=== PATIENT | female | born 1955 | race African-American/Black ===

== ENCOUNTER 2020-12-10 13:34 | Inpatient (IN) | payer MEDICARE, OTHER ==
[~2020-12-10] VITALS: Ht 175.3 cm; Wt 75.3 kg
--- NOTE | 2020-12-10 13:50 | NUR ---
TO ER BED 7, MAIDA DON FROM [facility], DIALYSIS NOT DONE BECAUSE OF ELEVATED FD=[id number], BP UPON ARRIVAL 112/69, SANDRA HARE, CHANGED TO A GOWN AND ATTACHED TO MONITOR.
--- NOTE | 2020-12-10 14:31 | NUR ---
LAB AT BEDSIDE
[2020-12-10] MEDS ORDERED: ERGO500093 GT (14:36)
[2020-12-10] MEDS ORDERED: EZET10TA16 GT (14:36)
[2020-12-10] MEDS ORDERED: ESCI5TAB GT (14:36)
[2020-12-10] MEDS ORDERED: DULO60CA45 GT (14:36)
[2020-12-10] MEDS ORDERED: IPRA3AMP23 IH ×2 (14:36)
[2020-12-10] MEDS ORDERED: ZOLP5TAB8 GT (14:36)
[2020-12-10] MEDS ORDERED: LEVO175T7 GT (14:36)
[2020-12-10] MEDS ORDERED: LACO100T2 GT (14:36)
[2020-12-10] MEDS ORDERED: LEVE500T9 GT (14:36)
[2020-12-10] MEDS ORDERED: METO25TA20 GT (14:36)
[2020-12-10] MEDS ORDERED: DOLU50TA GT (14:36)
[2020-12-10] MEDS ORDERED: HYDR-4303 GT (14:36)
[2020-12-10] MEDS ORDERED: COLL30OI TP (14:36)
[2020-12-10] MEDS ORDERED: AMLO-213 GT (14:36)
[2020-12-10] MEDS ORDERED: EMTR200C4 GT (14:36)
[2020-12-10] MEDS ORDERED: GABA-532 GT (14:36)
[2020-12-10] MEDS ORDERED: LACO50TA2 GT (14:36)
[2020-12-10] MEDS ORDERED: SEVE0.8P3 GT (14:36)
[2020-12-10] MEDS ORDERED: CHLO473M5 MM (14:36)
[2020-12-10] MEDS ORDERED: ABAC300T2 GT (14:36)
[2020-12-10] MEDS ORDERED: FEBU80TA GT (14:36)
[2020-12-10] MEDS ORDERED: METO5SOL2 GT (14:36)
[2020-12-10] MEDS ORDERED: CLON0.1T GT (14:36)
[2020-12-10 14:58] LABS: BASOPHILS % (AUTO) 0.2 % (0.0-2.0); EOSINOPHILS % (AUTO) 5.7 % (0.0-6.0); HEMATOCRIT 28 % (33-45); HEMOGLOBIN 8.6 g/dL (11.5-14.8); LYMPHOCYTES # (AUTO) 0.8 K/uL (0.8-4.8); LYMPHOCYTES % (AUTO) 5.5 % (20.0-44.0); MEAN CORPUSCULAR HGB CONC 31 g/dl (31.0-36.0); MEAN CORPUSCULAR VOLUME 100 fL (82-100); MONOCYTES # (AUTO) 0.6 K/uL (0.1-1.30); NEUTROPHILS # (AUTO) 12.1 K/uL (1.8-8.9); NEUTROPHILS % (AUTO) 84.6 % (43.0-81.0); PLATELET COUNT (AUTO) 343 K/uL (150-450); RED BLOOD CELL COUNT(AUTO) 2.77 MIL/uL (4.0-5.2); WHITE BLOOD COUNT (AUTO) 14.3 K/uL (4.3-11.0)
[2020-12-10 15:08] LABS: CALCIUM, SERUM 9.8 mg/dL (8.5-10.1); CARBON DIOXIDE 30 mmol/L (21-32); CHLORIDE 96 mmol/L (98-107); GLUCOSE 129 mg/dL (74-106); POTASSIUM 4.9 mmol/L (3.5-5.1); SODIUM SERUM 139 mmol/L (136-145); UREA NITROGEN, BLOOD 75 mg/dL (7-18)
[2020-12-10 15:21] LABS: ALANINE AMINOTRANSFERASE 12 U/L (12-78); ALBUMIN 2.2 g/dL (3.4-5.0); ALKALINE PHOSPHATASE 198 U/L (46-116); ASPARTATE AMINOTRANSFERASE 14 U/L (15-37); BILIRUBIN,DIRECT 0.2 mg/dL (0.0-0.2); BILIRUBIN,TOTAL 0.6 mg/dL (0.2-1.0); TOTAL PROTEIN, SERUM 7.9 g/dL (6.4-8.2)
--- NOTE | 2020-12-10 15:25 | NUR ---
MOVE SHEET SUBMITTED.
--- NOTE | 2020-12-10 15:58 | NUR ---
COVID SWAB DONE AND SENT TO LAB
--- NOTE | 2020-12-10 17:24 | NUR ---
[facility] CALLED ADVERTISING STATISTICAL CLERK PAGED.
--- NOTE | 2020-12-10 18:18 | NUR ---
GOT BED 110
--- NOTE | 2020-12-10 18:40 | NUR ---
REPORT GIVEN TO RN AT BEDSIDE
--- NOTE | 2020-12-10 19:05 | NUR ---
ADMIT NOTE RECEIVED PATIENT IN BED, OBTUNDED. RESPONSIVE TO DEEP PAIN. ON T-PIECE @ 5L, O2 SAT 100%. NO SIGNS OF RESPIRATORY DISTRESS. NO SIGNS OF DISCOMFORT. SINUS TACHY 103 ON THE MONITOR. SKIN ASSESSMENT DONE, NOTED WITH LEFT ANKLE WOUND, SACRUM WOUND, BILAT LOW BUTTOCKS EXCORIATION, AND GROIN REDNESS. KEPT CLEAN AND DRY, TURNED AND REPOSITIONED. LEFT ACT #20 PATENT AND INTACT. BED LOCKED AND IN LOWEST POSITION. SAFETY MEASURES MAINTAINED. WILL CONTINUE TO MONITOR.
[2020-12-10] MEDS ORDERED: TEMAZEPAM 15 MG CAPSULE PO PRN (19:30)
[2020-12-10] MEDS ORDERED: HYDROCODONE/APAP 5/325MG TABLET GT PRN (19:30)
[2020-12-10] MEDS ORDERED: METOCLOPRAMIDE HCL 10 MG/10 ML UDC GT PRN (19:30)
[2020-12-10] MEDS ORDERED: Z GUARD REMEDY 2 OZ OINT TP PRN (19:30)
[2020-12-10] MEDS ORDERED: CLONIDINE HCL 0.1 MG TABLET GT PRN (19:30)
[2020-12-10] MEDS ORDERED: ONDANSETRON HCL/PF 4 MG/2 ML VIAL IVP PRN (19:30)
[2020-12-10] MEDS ORDERED: hydrALAZINE HCL IV 20 MG VIAL IV PRN (19:30)
[2020-12-10] MEDS ORDERED: ZOLPIDEM TARTRATE 5 MG TABLET PO PRN (19:30)
[2020-12-10] MEDS ORDERED: ZOLPIDEM TARTRATE 5 MG TABLET GT PRN (19:30)
[2020-12-10 20:00] VITALS: BP 109/60
[2020-12-10] MEDS ORDERED: ACETAMINOPHEN 650 MG/20.3 ML UDC GT PRN (20:00)
[2020-12-10] MEDS: FIXODENT 1 EA TUBE MM SCH (21:00)
--- NOTE | 2020-12-10 22:46 | NUR ---
RN NOTE VERIFIED WITH DESIRE CHAPA IF MEDS OK VIA [facility]. RECEIVED NEW ORDER FOR NPO EXCEPT MEDS. NOTED AND CARRIED OUT.
[2020-12-10] MEDS: EZETIMIBE 10 MG TABLET GT SCH (23:03)
[2020-12-10] MEDS: LACOSAMIDE ORAL SOLN 50 MG/5 ML UDC GT SCH (23:03)
[2020-12-10] MEDS: GABAPENTIN 100 MG CAPSULE GT SCH (23:03)
[2020-12-10] MEDS: LEVETIRACETAM SOL (5 ML) 100 MG/ML UDC GT SCH (23:03)
[2020-12-10] MEDS: METOPROLOL TARTRATE 25 MG TABLET GT SCH (23:21)
[2020-12-11] VITALS (9 sets, daily range): BP systolic 86–123; BP diastolic 40–74
--- NOTE | 2020-12-11 04:23 | NUR ---
RN NOTE PATIENTS BLOOD PRESSURE 86/40 HR 103. NOTIFIED DESIRE CHAPA WITH NEW ORDER FOR IV NS 250 BOLUS. NOTED AND CARRIED OUT.
[2020-12-11] MEDS ORDERED: IV NS 0.9% 250 ML IV ONE (04:30)
[2020-12-11] MEDS: GABAPENTIN 100 MG CAPSULE GT SCH ×3 (04:57→20:07)
[2020-12-11] MEDS: METOPROLOL TARTRATE 25 MG TABLET GT SCH ×3 (05:14→17:11)
--- NOTE | 2020-12-11 06:03 | NUR ---
RN NOTE PATIENTS BLOOD PRESSURE 75/41 . MANUALLY 84/48. PAGED DESIRE CHAPA, WAITING FOR ANY NEW ORDERS.
--- NOTE | 2020-12-11 06:30 | NUR ---
RN NOTE PAGED DESIRE CHAPA AT THIS TIME AGAIN, AWAITING FOR ANY NEW ORDERS.
--- NOTE | 2020-12-11 06:52 | NUR ---
RN NOTE RECHECKED BLOOD PRESSURE 94/48. DESIRE CHAPA MADE AWARE AT THIS TIME WITH ORDERS TO MONITOR. PATIENT OBTUNDED IN BED. OPENS EYES SPONTANEOUSLY. NO ACUTE RESPIRATORY DISTRESS NOTED. IV ACCESS ON LEFT HAND #22 PATENT AND INTACT. BED LOCKED AND IN LOWEST POSITION. CALL LIGHT WITHIN REACH. WILL ENDORSE TO AM SHIFT.
[2020-12-11 07:16] LABS: CALCIUM, SERUM 9.3 mg/dL (8.5-10.1); CREATININE 5.4 mg/dL (0.6-1.3); MAGNESIUM 2.6 mg/dL (1.8-2.4); PHOSPHORUS 6.5 mg/dL (2.5-4.9); POTASSIUM 4.4 mmol/L (3.5-5.1)
--- NOTE | 2020-12-11 07:50 | NUR ---
RN NOTE NOTIFIED DR. MARTINEZ CRITICAL LAB BUN OF 80 AND CREATININE OF 5.4.
[2020-12-11 08:15] LABS: BASOPHILS % (AUTO) 0.2 % (0.0-2.0); EOSINOPHILS % (AUTO) 3.3 % (0.0-6.0); LYMPHOCYTES # (AUTO) 0.7 K/uL (0.8-4.8); LYMPHOCYTES % (AUTO) 3.2 % (20.0-44.0); MEAN CORPUSCULAR HGB CONC 32 g/dl (31.0-36.0); MEAN CORPUSCULAR VOLUME 98 fL (82-100); MONOCYTES # (AUTO) 1.2 K/uL (0.1-1.30); MONOCYTES % (AUTO) 5.4 % (2.0-12.0); NEUTROPHILS # (AUTO) 19.4 K/uL (1.8-8.9); NEUTROPHILS % (AUTO) 87.9 % (43.0-81.0); PLATELET COUNT (AUTO) 281 K/uL (150-450); RED BLOOD CELL COUNT(AUTO) 2.09 MIL/uL (4.0-5.2)
[2020-12-11 08:36] LABS: HEMATOCRIT 20 % (33-45); HEMOGLOBIN 6.6 g/dL (11.5-14.8)
--- NOTE | 2020-12-11 08:47 | NUR ---
RN NOTE PER DR. MARTINEZ HD TODAY FOR BUN OF 80 AND CREATININE OF 5.4.
--- NOTE | 2020-12-11 08:47 | NUR ---
RN NOTE DR. MEZA NOTIFIED PATIENT HGB OF 6.6 AND HCT OF 20, TRANSFUSE 1 UNIT PRBC WITH DIALYSIS TODAY.
[2020-12-11] MEDS: AMLODIPINE BESYLATE 10 MG TABLET GT SCH (09:00)
[2020-12-11] MEDS: FIXODENT 1 EA TUBE MM SCH ×2 (09:00→21:00)
[2020-12-11] MEDS: LEVOTHYROXINE SODIUM 175 MCG TABLET GT SCH (09:06)
[2020-12-11] MEDS: DULOXETINE HCL 30 MG CAPSULE.DR GT SCH (09:06)
[2020-12-11] MEDS: LEVETIRACETAM SOL (5 ML) 100 MG/ML UDC GT SCH ×2 (09:06→20:07)
[2020-12-11] MEDS: SEVELAMER CARBONATE 800 MG POWD.PACK GT SCH ×3 (09:12→17:14)
[2020-12-11] MEDS: ABACAVIR SULFATE 300 MG TABLET GT SCH (09:12)
[2020-12-11] MEDS: THERAHONEY GEL 1.5 OZ TUBE TP SCH (09:14)
[2020-12-11] MEDS: LACOSAMIDE ORAL SOLN 50 MG/5 ML UDC GT SCH ×2 (09:14→20:07)
--- NOTE | 2020-12-11 09:22 | NUR ---
WOUND CARE CONSULT: REVIEWED CHART, NURSING DOCUMENTATION AND PHOTOS WHICH INDICATE NECROTIC WOUND TO SACRUM EXTENDING TO BUTTOCKS WELL LOWER EXTREMITY WOUND, PRESENT ON ADMISSION. SURGICAL AND DPM CONSULTS CALLED TO DR FITZGERALD AND DR HOGAN. RECOMMENDATIONS MADE FOR SKIN PROTECTION INCLUDING LOW AIRLOSS MATTRESS. DISCUSSED WITH NURSING STAFF. MD IN AGREEMENT WITH PLAN OF CARE.
[2020-12-11 09:39] LABS: BAND % (MANUAL) 2 % (0.0-5.0); EOSINOPHILS % (MANUAL) 3 % (0-4); LYMPHOCYTES % (MANUAL) 1 % (16-48); MONOCYTES % (MANUAL) 6 % (0-11.0); NEUTROPHILS % (MANUAL) 88 (42-76)
--- NOTE | 2020-12-11 09:54 | NUR ---
RN NOTE PATIENT UNABLE TO SIGN OBTAINED VERBAL CONSENT FOR HEMODIALYSIS AND BLOOD TRANSFUSION FROM RESPONSIBLE DEMOCRAT DEVIN VELARDE (SON), WITNESS BY CERTIFIED LEGAL SECRETARY SPECIALIST NURSE
--- NOTE | 2020-12-11 12:04 | NUR ---
RN NOTE HOLD METOPROLOL BP OF 95/58 HR OF 89. MD NOTIFIED.
[2020-12-11] MEDS ORDERED: EPOETIN ALFA-EPBX 10,000 UNIT/ML VIAL IV ONE (15:00)
--- NOTE | 2020-12-11 15:06 | NUR ---
RN NOTE BLOOD TRANSFUSION COMPLETED. NO BLOOD TRANSFUSION REACTION NOTED.
--- NOTE | 2020-12-11 15:17 | NUR ---
RN NOTE DR. HARRIS NOTIFIED WBC OF 22.
[2020-12-11] MEDS ORDERED: VANCOMYCIN 1 GM in IV D5W 250 ML IV ONE ×2 (16:00→17:30)
[2020-12-11] MEDS ORDERED: MEROPENEM 1 G in IV NS 0.9% 100 ML IV SCH (16:00)
[2020-12-11] MEDS: MEROPENEM 1 G in IV NS 0.9% 100 ML IV SCH ×2 (17:14→19:21)
--- NOTE | 2020-12-11 17:45 | NUR ---
RN NOTE PATIENT POST DIALYSIS, BLADDER SCAN 5CC, UNABLE TO COLLECT UA ORDER, WILL ENDORSE TO NOC SHIFT.
--- NOTE | 2020-12-11 18:36 | NUR ---
RN CLOSING NOTE PATIENT IN BED, OBTUNDED. T PIECE IN PLACE WITH 5L O2, NO SIGNS OF LABORED BREATHING. FLORES CATH IN PLACE, NO UO. G TUBE IN PLACE, FLUSHED AND PATENT. L HAND 22G IN PLACE RUNNING VANCO AT THIS TIME. BED LOCKED AND IN LOWEST POSITION, 3 SIDE RAILS UP, CALL LIGHT WITHIN REACH. WILL ENDORSE TO MACHINE FOLDER NURSE.
--- NOTE | 2020-12-11 19:00 | NUR ---
RN NOTES, PATIENT TAKEN TO CT SCAN AT THIS TIME, PATIENT IN STABLE CONDITION.
--- NOTE | 2020-12-11 19:35 | NUR ---
RN NOTES, PATIENT RETURN FROM CT SCAN IN STABLE CONDITION, NO SOB/ACUTE DISTRESS NOTED, PATIENT WITH TPIECE IN PLACE, AT 5LPM, WILL CONTINUE TO MONITOR CLOSELY.
[2020-12-11] MEDS: PANTOPRAZOLE 40 MG VIAL IV SCH (20:07)
[2020-12-11] MEDS: DAKINS QUARTER STRENGTH (0.125%) 480 ML BOTTLE TOP SCH (20:14)
[2020-12-11] MEDS: EZETIMIBE 10 MG TABLET GT SCH (21:08)
[2020-12-11] MEDS: METRONIDAZOLE 500 MG TABLET PO SCH (21:08)
--- NOTE | 2020-12-11 22:00 | NUR ---
RN NOTES, PATIENT SEEN BY DOTTIE BLISS, AND PER HER DC THE FLORES SINCE PATIENT IS ANURIC, NO OUTPUT NOTED, PER BLADDER SCAN 5ML ONLY, ORDER NOTED AND CARRIED OUT.
[2020-12-12] VITALS: BP 134/73
[2020-12-12] MEDS: METOPROLOL TARTRATE 25 MG TABLET GT SCH ×4 (00:31→18:00)
[2020-12-12 04:00] VITALS: BP 139/75
[2020-12-12] MEDS: GABAPENTIN 100 MG CAPSULE GT SCH ×3 (05:35→21:39)
[2020-12-12] MEDS: METRONIDAZOLE 500 MG TABLET PO SCH ×3 (05:35→21:39)
[2020-12-12 06:32] LABS: BASOPHILS # (AUTO) 0.1 K/uL (0.0-0.2); BASOPHILS % (AUTO) 0.3 % (0.0-2.0); EOSINOPHILS % (AUTO) 3.9 % (0.0-6.0); HEMATOCRIT 27 % (33-45); HEMOGLOBIN 8.9 g/dL (11.5-14.8); LYMPHOCYTES # (AUTO) 0.6 K/uL (0.8-4.8); LYMPHOCYTES % (AUTO) 3.7 % (20.0-44.0); MEAN CORPUSCULAR HGB CONC 33 g/dl (31.0-36.0); MEAN CORPUSCULAR VOLUME 94 fL (82-100); MONOCYTES # (AUTO) 0.7 K/uL (0.1-1.30); MONOCYTES % (AUTO) 4.3 % (2.0-12.0); NEUTROPHILS # (AUTO) 13.9 K/uL (1.8-8.9); NEUTROPHILS % (AUTO) 87.8 % (43.0-81.0); PLATELET COUNT (AUTO) 289 K/uL (150-450); RED BLOOD CELL COUNT(AUTO) 2.88 MIL/uL (4.0-5.2); WHITE BLOOD COUNT (AUTO) 15.8 K/uL (4.3-11.0)
--- NOTE | 2020-12-12 06:59 | NUR ---
RN NOTES, PT ON BED, OBTUNDED, OPEN EYES TO PAINFUL STIMULI , WITH TRACH IN PLACE, ON T-PIECE, AT 5LPM WITH 100% THROUGHOUT THE NIGHT, NO SOB/ACUTE DISTRESS NOTED, SR HR IN 80-100S DURING THE NIGHT, OPTIMAL O2 SAT LEVEL, NO SIGNIFICANT CHANGE IN CONDITION DURING THE NIGHT, ALL SAFETY MEASURES IN PLACED, SR UP x3, CALL LIGHT W/I REACH, BED LOCKED AND IN LOWEST POSITION, DC FLORES CATH PER DOTTIE LAST NIGHT, WILL ENDORSE CONTINUITY OF CARE TO ONCOMING NURSE.
[2020-12-12 07:02] LABS: CALCIUM, SERUM 9.8 mg/dL (8.5-10.1); CREATININE 3.4 mg/dL (0.6-1.3); MAGNESIUM 2.1 mg/dL (1.8-2.4); PHOSPHORUS 4.2 mg/dL (2.5-4.9); POTASSIUM 4.3 mmol/L (3.5-5.1)
[2020-12-12 08:00] VITALS: BP 107/59
--- NOTE | 2020-12-12 08:00 | NUR ---
NURSE OPENING NOTE RECEIVE REPORT FROM GRAIN ELEVATOR SUPERINTENDENT NURSE. PATIENT IN STABLE CONDITION WITH NO SIGN OF DISTRESS. IV FLUSH IS PATENT AND FLUSH. ALL SAFETY MEASURES IN PLACE. BED IN LOWEST POSITION WITH HOB ELEVATED 30 DEGREE. CALL LIGHT WITHIN REACH. WILL CONTINUE TO MONITOR.
[2020-12-12] MEDS: ABACAVIR SULFATE 300 MG TABLET GT SCH (08:49)
[2020-12-12] MEDS: LEVETIRACETAM SOL (5 ML) 100 MG/ML UDC GT SCH ×2 (08:49→21:39)
[2020-12-12] MEDS: DULOXETINE HCL 30 MG CAPSULE.DR GT SCH (08:50)
[2020-12-12] MEDS: SEVELAMER CARBONATE 800 MG POWD.PACK GT SCH ×3 (08:50→18:06)
[2020-12-12] MEDS: PANTOPRAZOLE 40 MG VIAL IV SCH ×2 (08:51→18:06)
[2020-12-12] MEDS: AMLODIPINE BESYLATE 10 MG TABLET GT SCH (08:51)
[2020-12-12] MEDS: FIXODENT 1 EA TUBE MM SCH ×2 (08:52→21:00)
[2020-12-12] MEDS: DAKINS QUARTER STRENGTH (0.125%) 480 ML BOTTLE TOP SCH (08:53)
[2020-12-12] MEDS: THERAHONEY GEL 1.5 OZ TUBE TP SCH (08:54)
[2020-12-12] MEDS: LACOSAMIDE ORAL SOLN 50 MG/5 ML UDC GT SCH ×2 (09:06→21:38)
[2020-12-12] MEDS: LEVOTHYROXINE SODIUM 175 MCG TABLET GT SCH (09:06)
[2020-12-12] MEDS ORDERED: VANCOMYCIN 500 MG in IV D5W 100 ML IV PRN (11:00)
[2020-12-12 12:00] VITALS: BP 95/57
[2020-12-12 16:00] VITALS: BP 90/55
[2020-12-12] MEDS ORDERED: VANCOMYCIN 500 MG in IV D5W 100 ML IV SCH (16:00)
[2020-12-12] MEDS: MEROPENEM 1 G in IV NS 0.9% 100 ML IV SCH (18:05)
[2020-12-12] MEDS ORDERED: EMTRICITABINE 200 MG CAPSULE GT SCH (19:30)
--- NOTE | 2020-12-12 19:31 | NUR ---
NURSE CLOSING NOTE REPORT WAS GIVEN TO ON COMING NURSE. PATIENT IN STABLE CONDITION. DIALYSIS WAS DONE. POST DIALYSIS BLOOD PRESSURE 96/59. 2000ML WAS TAKEN OUT. MID LINE WAS PLACE ON RIGHT UPPER ARM 18g. FLUSH WELL. WOUND CONSULT IN PLACE AND CONSENT SIGNED. SAFETY MEASURE IN PLACE. PATIENT WAS TURN AND REPOSITIONED ACCORDING TO PROTOCOL. BED IN THE LOWEST POSITION WITH HEAD OF THE BED ELEVATED 30 DEGREE. CALL LIGHT WITHIN REACH.
[2020-12-12 20:00] VITALS: BP 103/48
--- NOTE | 2020-12-12 20:00 | NUR ---
RT COVID RESULTS NEG, PT PLACED ON COOL AEROSOL 28% FIO2. NO SOB OR RESPIRATORY DISTRESS NOTED. PT SON IS BEDSIDE. RN INFORMED.
[2020-12-12] MEDS: EZETIMIBE 10 MG TABLET GT SCH (21:39)
--- NOTE | 2020-12-12 21:48 | NUR ---
MED NOTE: FIXODENT NOT GIVEN PT HAS NO DENTURES.
[2020-12-13] VITALS (7 sets, daily range): BP systolic 105–133; BP diastolic 54–83
[2020-12-13] MEDS: METOPROLOL TARTRATE 25 MG TABLET GT SCH ×5 (00:53→23:56)
[2020-12-13] MEDS: METRONIDAZOLE 500 MG TABLET PO SCH ×3 (05:04→21:33)
[2020-12-13] MEDS: GABAPENTIN 100 MG CAPSULE GT SCH ×3 (05:04→21:33)
[2020-12-13 06:07] LABS: *BASOS 0 % (Not Estab.); *BASOS, ABSOLUTE 0.1 x10E3/uL (0.0-0.2); *EOS 4 % (Not Estab.); *EOS, ABSOLUTE 0.7 x10E3/uL (0.0-0.4); *HCT 26.6 % (34.0-46.6); *HGB 8.6 g/dL (11.1-15.9); *IMMATURE GRANULOCYTES 1 % (Not Estab.); *IMMATURE GRANULOCYTES(ABS) 0.2 x10E3/uL (0.0-0.1); *LYMPHOCYTES 4 % (Not Estab.); *LYMPHS, ABSOLUTE 0.7 x10E3/uL (0.7-3.1); *MCH 29.9 pg (26.6-33.0); *MCHC 32.3 g/dL (31.5-35.7); *MCV 92 fL (79-97); *MONOCYTES 4 % (Not Estab.); *MONOS, ABSOLUTE 0.8 x10E3/uL (0.1-0.9); *NEUTROPHILS 87 % (Not Estab.); *NEUTROPHILS, ABSOLUTE 16.9 x10E3/uL (1.4-7.0); *PLT 267 x10E3/uL (150-450); *RBC 2.88 x10E6/uL (3.77-5.28)
--- NOTE | 2020-12-13 06:08 | NUR ---
RT Pt with Portex 8 trach on cool aerosol with 28% FiO2 via t-bar. Spo2 > 99% maintained. Suction PRN, small thick white secretions. Trach care done and matthews changed. No SOB or respiratory distress noted throughout shift.
--- NOTE | 2020-12-13 07:30 | NUR ---
TRESTLEMAN AM NOTE RECEIVE PT IN BED, NON VERBAL, OPENS EYE, WITH PORTEX 8 TRACH ON COOL AEROSOL RECEIVING 2L WITH FIO2 28%, SINUS RHYTHM HR 76 ON MONITOR,NO SIGNS OF PAIN/DISCOMFORT, NO GRIMACING. JOSE A MIDLINE FLUSHES WELL SITE CLEAR, CDI DRESSING. TERESA AV SHUNT CDI DRESSING. NPO FOR NOW. GT CLAMPED. CHECKED FOR PLACEMENT.FLUSHED. SEE NURSING FLOWSHEET FOR SKIN ISSUES. FOR DEBRIDEMENT OF SACRAL WOUND, CONSENT SIGNED. ALL SAFETY MEASURES IN PLACE. BED IN LOWEST POSITION WITH HOB ELEVATED 30 DEGREE. CALL LIGHT WITHIN REACH. WILL CONTINUE TO MONITOR.
[2020-12-13] MEDS: THERAHONEY GEL 1.5 OZ TUBE TP SCH (09:00)
[2020-12-13] MEDS: FIXODENT 1 EA TUBE MM SCH ×2 (09:00→20:25)
[2020-12-13 09:06] LABS: BASOPHILS # (AUTO) 0.1 K/uL (0.0-0.2); BASOPHILS % (AUTO) 0.4 % (0.0-2.0); EOSINOPHILS % (AUTO) 2.7 % (0.0-6.0); HEMATOCRIT 28 % (33-45); HEMOGLOBIN 8.7 g/dL (11.5-14.8); LYMPHOCYTES # (AUTO) 0.6 K/uL (0.8-4.8); LYMPHOCYTES % (AUTO) 3.6 % (20.0-44.0); MEAN CORPUSCULAR HGB CONC 31 g/dl (31.0-36.0); MEAN CORPUSCULAR VOLUME 95 fL (82-100); MONOCYTES # (AUTO) 0.9 K/uL (0.1-1.30); MONOCYTES % (AUTO) 5.3 % (2.0-12.0); NEUTROPHILS # (AUTO) 15.1 K/uL (1.8-8.9); PLATELET COUNT (AUTO) 306 K/uL (150-450); RED BLOOD CELL COUNT(AUTO) 2.93 MIL/uL (4.0-5.2); WHITE BLOOD COUNT (AUTO) 17.2 K/uL (4.3-11.0)
[2020-12-13 09:07] LABS: *% CD 4 POS. LYMPH 54.6 % (30.8-58.5); *% CD 8 POS. LYMPH 21.9 % (12.0-35.5); *ABSOLUTE CD 4 HELPER 382 /uL (359-1519); *ABSOLUTE CD 8 SUPPRESSOR 153 /uL (109-897); *CD4/CD8 RATIO 2.49 (0.92-3.72)
[2020-12-13 09:16] LABS: ALBUMIN 1.9 g/dL (3.4-5.0); BILIRUBIN,TOTAL 0.5 mg/dL (0.2-1.0); CALCIUM, SERUM 10.3 mg/dL (8.5-10.1); CREATININE 2.5 mg/dL (0.6-1.3); POTASSIUM 4.2 mmol/L (3.5-5.1)
[2020-12-13] MEDS: PANTOPRAZOLE 40 MG VIAL IV SCH (09:25)
--- NOTE | 2020-12-13 09:30 | NUR ---
RN NOTES DUE MEDS GIVEN
[2020-12-13] MEDS: LACOSAMIDE ORAL SOLN 50 MG/5 ML UDC GT SCH ×2 (09:36→21:33)
[2020-12-13] MEDS: ABACAVIR SULFATE 300 MG TABLET GT SCH (09:36)
[2020-12-13] MEDS: DULOXETINE HCL 30 MG CAPSULE.DR GT SCH (09:37)
[2020-12-13] MEDS: LEVOTHYROXINE SODIUM 175 MCG TABLET GT SCH (09:38)
[2020-12-13] MEDS: AMLODIPINE BESYLATE 10 MG TABLET GT SCH (09:38)
[2020-12-13] MEDS: LEVETIRACETAM SOL (5 ML) 100 MG/ML UDC GT SCH ×2 (09:43→21:32)
[2020-12-13] MEDS: SEVELAMER CARBONATE 800 MG POWD.PACK GT SCH ×3 (09:43→18:22)
[2020-12-13] MEDS: DAKINS QUARTER STRENGTH (0.125%) 480 ML BOTTLE TOP SCH (10:52)
[2020-12-13] MEDS ORDERED: LIDOCAINE 1%-EPI 1:100,000 50 ML VIAL IJ ONE (12:00)
[2020-12-13] MEDS ORDERED: SILVER NITRATE APPLICATOR 1 EA BOX TP ONE (12:00)
[2020-12-13] MEDS ORDERED: DEXTROSE 50%-WATER 50 ML DISP.SYRIN IV PRN (12:00)
[2020-12-13] MEDS ORDERED: NEPRO 1,000 ML BOTTLE GT PRN (12:30)
--- NOTE | 2020-12-13 12:33 | NUR ---
RN NOTES ACCUCHECK DONE. BS 96 MG/DL. NO INSULIN COVERAGE GIVEN
[2020-12-13] MEDS: BLOOD SUGAR DIAGNOSTIC 1 EACH STRIP IN SCH ×3 (12:49→21:34)
[2020-12-13] MEDS ORDERED: VANCOMYCIN 500 MG in IV D5W 100 ML IV PRN (15:30)
[2020-12-13] MEDS: PROSOURCE / PROSTAT (PYXIS) 30 ML UDC GT SCH ×2 (15:30→18:36)
[2020-12-13] MEDS: NEPRO 1,000 ML BOTTLE GT PRN (17:48)
[2020-12-13] MEDS: MEROPENEM 1 G in IV NS 0.9% 100 ML IV SCH (18:22)
--- NOTE | 2020-12-13 19:16 | NUR ---
LOG CUTTER CLOSING NOTE PT IN BED RESTING, NON VERBAL, OPENS EYE, WITH PORTEX 8 TRACH ON COOL AEROSOL RECEIVING 2L WITH FIO2 28%, SINUS RHYTHM HR 7Os TO 80s ON MONITOR,NO SIGNS OF PAIN/DISCOMFORT, NO GRIMACING. JOSE A MIDLINE FLUSHES WELL SITE CLEAR, CDI DRESSING. TERESA AV SHUNT CDI DRESSING. HEMODIALYSIS NURSE AT BEDSIDE FINISHING HD WITH 1000 ML OUTPUT. ONGOING GTF NEPRO AT 35 ML/HR. CHECKED FOR PLACEMENT.FLUSHED. PT STILL FOR DEBRIDEMENT OF SACRAL WOUND SIDDHARTHA C/O IBIS MONROE, CONSENT SIGNED. ALL SUPPLIES AT BEDSIDE. TURNED AND REPOSITIONED Q 2 HOURS. ALL SAFETY MEASURES IN PLACE. BED IN LOWEST POSITION WITH HOB ELEVATED 30 DEGREE. CALL LIGHT WITHIN REACH. ALL NEEDS ATTENDED, NO OTHER SIGNIFICANT CHANGE IN CONDITION. ENDORSED TO NEXT SHIFT FOR [place].
--- NOTE | 2020-12-13 19:40 | NUR ---
RCVD TRACH PT W SIZE PORTEX 8 ON COOL AEROSOL 28% 5L. SUCTIONED SMALL YELLOW THICK SECRETIONS. PT IS NON VERBAL , NO RESPIRATORY DISTRESS NOTED AT THIS TIME. WILL CONTINUE TO MONITOR T/O THE SHIFT.
[2020-12-13] MEDS: PANTOPRAZOLE 40 MG/PACK PACK NG SCH (21:33)
[2020-12-13] MEDS: EZETIMIBE 10 MG TABLET GT SCH (21:34)
[2020-12-14] VITALS: BP 127/60
[2020-12-14 04:00] VITALS: BP 134/67
[2020-12-14] MEDS: GABAPENTIN 100 MG CAPSULE GT SCH ×3 (05:37→23:21)
[2020-12-14] MEDS: METOPROLOL TARTRATE 25 MG TABLET GT SCH ×3 (05:38→17:05)
[2020-12-14] MEDS: METRONIDAZOLE 500 MG TABLET PO SCH ×3 (05:38→23:21)
[2020-12-14 07:17] LABS: BASOPHILS # (AUTO) 0.1 K/uL (0.0-0.2); BASOPHILS % (AUTO) 0.5 % (0.0-2.0); EOSINOPHILS % (AUTO) 2.2 % (0.0-6.0); HEMATOCRIT 30 % (33-45); HEMOGLOBIN 9.4 g/dL (11.5-14.8); LYMPHOCYTES # (AUTO) 0.7 K/uL (0.8-4.8); LYMPHOCYTES % (AUTO) 3.9 % (20.0-44.0); MEAN CORPUSCULAR HGB CONC 32 g/dl (31.0-36.0); MEAN CORPUSCULAR VOLUME 95 fL (82-100); MONOCYTES # (AUTO) 1.2 K/uL (0.1-1.30); MONOCYTES % (AUTO) 6.7 % (2.0-12.0); NEUTROPHILS % (AUTO) 86.7 % (43.0-81.0); PLATELET COUNT (AUTO) 305 K/uL (150-450); RED BLOOD CELL COUNT(AUTO) 3.14 MIL/uL (4.0-5.2); WHITE BLOOD COUNT (AUTO) 18.5 K/uL (4.3-11.0)
--- NOTE | 2020-12-14 07:30 | NUR ---
RN AM NOTE RECEIVED PT IN BED, NON VERBAL, OPENS EYE, WITH PORTEX 8 TRACH ON COOL AEROSOL RECEIVING 2L WITH FIO2 28%, O2 SATURATION 100%, SINUS RHYTHM HR 88 ON MONITOR, PT SHOWS NO SIGNS OF PAIN OR DISCOMFORT, NO GRIMACING. JOSE A MIDLINE FLUSHES WELL SITE CLEAR, CDI DRESSING. TERESA AV SHUNT CDI DRESSING. NPO FOR NOW. GT WITH NEPRO @35ML/HR. CHECKED FOR PLACEMENT. FLUSHED. PT SCHEDULED FOR DEBRIDEMENT OF SACRAL WOUND THIS AFTERNOON, CONSENT SIGNED. ALL SAFETY MEASURES IN PLACE: BED IN LOWEST POSITION WITH HOB ELEVATED 30 DEGREES, BED RAILS RAISED X2. CALL LIGHT WITHIN REACH.
[2020-12-14 07:42] LABS: ALBUMIN 2.1 g/dL (3.4-5.0); BILIRUBIN,TOTAL 0.6 mg/dL (0.2-1.0); CALCIUM, SERUM 9.2 mg/dL (8.5-10.1); CREATININE 2.2 mg/dL (0.6-1.3); POTASSIUM 3.8 mmol/L (3.5-5.1); TOTAL PROTEIN, SERUM 6.3 g/dL (6.4-8.2)
[2020-12-14 08:00] VITALS: BP 149/76
[2020-12-14] MEDS: LEVOTHYROXINE SODIUM 175 MCG TABLET GT SCH (08:23)
[2020-12-14] MEDS: PROSOURCE / PROSTAT (PYXIS) 30 ML UDC GT SCH ×3 (08:23→17:05)
[2020-12-14] MEDS: LACOSAMIDE ORAL SOLN 50 MG/5 ML UDC GT SCH ×2 (08:24→23:20)
[2020-12-14] MEDS: ABACAVIR SULFATE 300 MG TABLET GT SCH (08:24)
[2020-12-14] MEDS: PANTOPRAZOLE 40 MG/PACK PACK NG SCH ×2 (08:24→23:20)
[2020-12-14] MEDS: LEVETIRACETAM SOL (5 ML) 100 MG/ML UDC GT SCH ×2 (08:24→23:19)
[2020-12-14] MEDS: SEVELAMER CARBONATE 800 MG POWD.PACK GT SCH ×3 (08:25→17:05)
[2020-12-14] MEDS: AMLODIPINE BESYLATE 10 MG TABLET GT SCH (08:26)
[2020-12-14] MEDS: DULOXETINE HCL 30 MG CAPSULE.DR GT SCH (08:26)
[2020-12-14] MEDS: BLOOD SUGAR DIAGNOSTIC 1 EACH STRIP IN SCH ×4 (08:38→22:00)
[2020-12-14] MEDS: FIXODENT 1 EA TUBE MM SCH ×2 (09:00→23:49)
[2020-12-14] MEDS: DAKINS QUARTER STRENGTH (0.125%) 480 ML BOTTLE TOP SCH (09:06)
[2020-12-14] MEDS: THERAHONEY GEL 1.5 OZ TUBE TP SCH (09:07)
[2020-12-14] MEDS: INSULIN REGULAR, HUMAN 100 UNIT/ML 3 ML VIAL SQ PRN ×3 (09:11→17:47)
--- NOTE | 2020-12-14 09:30 | NUR ---
RN NOTES DUE MEDS GIVEN
[2020-12-14] MEDS ORDERED: LINEZOLID 600 MG TABLET PO SCH (11:30)
[2020-12-14 12:00] VITALS: BP 105/53
[2020-12-14] MEDS ORDERED: DAPTOMYCIN 500 MG in IV NS 0.9% 50 ML IV SCH (13:00)
--- NOTE | 2020-12-14 13:10 | NUR ---
RN NOTES S/P SACRAL WOUND DEBRIDEMENT BY IBIS MONROE. PROCEDURE WELL TOLERATED BY PATIENT.
[2020-12-14 16:00] VITALS: BP 126/67
[2020-12-14] MEDS: MEROPENEM 1 G in IV NS 0.9% 100 ML IV SCH (17:05)
--- NOTE | 2020-12-14 18:17 | NUR ---
RN PM NOTE PT IS IN BED RESTING, NON VERBAL, OPENS EYE, WITH PORTEX 8 TRACH ON COOL AEROSOL RECEIVING 2L WITH FIO2 28%, SINUS RHYTHM HR 90S TO 100S ON MONITOR, NO SIGNS OF PAIN/DISCOMFORT, NO GRIMACING. JOSE A MIDLINE FLUSHES WELL SITE CLEAR, CDI DRESSING. TERESA AV SHUNT CDI DRESSING. NO HEMODIALYSIS TODAY. ONGOING GTF NEPRO AT 35 ML/HR. CHECKED FOR PLACEMENT.FLUSHED. PT HAD DEBRIDEMENT OF SACRAL WOUND TODAY C/O IBIS MONROE, CONSENT SIGNED. TURNED AND REPOSITIONED Q 2 HOURS USING WEDGE. ALL SAFETY MEASURES IN PLACE. BED IN LOWEST POSITION WITH HOB ELEVATED 30 DEGREE. CALL LIGHT WITHIN REACH. ALL NEEDS ATTENDED, NO OTHER SIGNIFICANT CHANGE IN CONDITION. WILL ENDORSE TO MARBLE HELPER NURSE FOR [place].
[2020-12-14] MEDS ORDERED: ERGOCALCIFEROL (VITAMIN D 2) 50,000 UNIT CAPSULE GT SCH (19:30)
--- NOTE | 2020-12-14 19:54 | NUR ---
RN OPENING NOTES; RECEIVED PATIENT SLEEP IN BED, AROUSABLE TO STIMULI, BED IN LOW POSITION, CALL LIGHTS WITHIN REACH, NO COMPLAIN OF PAIN AND DISCOMFORT NO FACIAL GRIMACING WAS OBSERVED, ON NASAL CANNULA COOL AEROSOL, NONE VERBAL, ON G TUBE FEEDING AT 35ML/HR ON TELE MONITORING, WITH IV LINE AT JOSE A MIDLINE AND AV TERESA AV SHUNT, PATIENT KEPT CLEAN AND DRY, PLACED IN BED COMFORTABLY, WILL CONTINUE TO MONITOR.
[2020-12-14 20:00] VITALS: BP 110/59
[2020-12-14] MEDS: EZETIMIBE 10 MG TABLET GT SCH (23:21)
--- NOTE | 2020-12-14 23:50 | NUR ---
RN NOTES: PATIENT GIVEN TYLENOL 650MG GT FOR TEMP 101.2
[2020-12-15] MEDS: INSULIN REGULAR, HUMAN 100 UNIT/ML 3 ML VIAL SQ PRN ×4 (00:01→22:02)
[2020-12-15 01:28] VITALS: BP 79/44
[2020-12-15 04:00] VITALS: BP 104/49
[2020-12-15] MEDS ORDERED: IV NS 0.9% 500 ML IV ONE (05:30)
[2020-12-15 05:59] LABS: BASOPHILS # (AUTO) 0.1 K/uL (0.0-0.2); BASOPHILS % (AUTO) 0.6 % (0.0-2.0); EOSINOPHILS % (AUTO) 1.7 % (0.0-6.0); HEMATOCRIT 24 % (33-45); HEMOGLOBIN 7.7 g/dL (11.5-14.8); LYMPHOCYTES # (AUTO) 0.8 K/uL (0.8-4.8); LYMPHOCYTES % (AUTO) 5.2 % (20.0-44.0); MEAN CORPUSCULAR HGB CONC 32 g/dl (31.0-36.0); MEAN CORPUSCULAR VOLUME 95 fL (82-100); MONOCYTES % (AUTO) 6.9 % (2.0-12.0); NEUTROPHILS # (AUTO) 12.7 K/uL (1.8-8.9); NEUTROPHILS % (AUTO) 85.6 % (43.0-81.0); PLATELET COUNT (AUTO) 295 K/uL (150-450); RED BLOOD CELL COUNT(AUTO) 2.55 MIL/uL (4.0-5.2); WHITE BLOOD COUNT (AUTO) 14.9 K/uL (4.3-11.0)
[2020-12-15] MEDS: METOPROLOL TARTRATE 25 MG TABLET GT SCH ×4 (06:00→17:15)
[2020-12-15] MEDS: GABAPENTIN 100 MG CAPSULE GT SCH ×3 (06:19→20:34)
[2020-12-15] MEDS: METRONIDAZOLE 500 MG TABLET PO SCH ×3 (06:19→20:34)
--- NOTE | 2020-12-15 07:10 | NUR ---
RN CLOSING NOTES: RECEIVED PATIENT SLEEP IN BED COMFORTABLY, BED IN LOW POSITION CALL LIGHTS WITHIN REACH, NO COMPLAIN OF PAIN AND DISCOMFORT NO FACIAL GRIMACING NOTED ON TELE MONITORING , WITH IV LINE AT JOSE A #18 AND TERESA HD PORT, PATIENT ON G TUBE FEEDING NEPHRO 35 ML /HR INFUSING WELL, PATIENT WAS MONITORED DUE LOW BP ORDER OF 500CC OF 0.9NSS DONE AND CARRY OUT PATIENT KEPT CLEAN AND DRY ALL NEEDS MET ENDORSE TO INCOMING SHIFT.
--- NOTE | 2020-12-15 07:31 | NUR ---
RT Pt suctioned through inline matthews, small thick yellow/white secretions. Addendum: 12/15/20 at 1113 by NIKHIL SARKAR RT Amended: Links added.
--- NOTE | 2020-12-15 07:34 | NUR ---
RN NOTES: RELAY PT LOW BP AT 12MN BP 90/56 AND 4AM BP 79/42 TO INSPECTOR BARREL LIZ AND ORDER 500CC NSS FAST DRIP NOTED AND CARRY OUT PATIENT BP WAS 104/49 AFTER INFUSION.
--- NOTE | 2020-12-15 07:40 | NUR ---
RN OPENING NOTES RECEIVED PATIENT ASLEEP IN BED, NON-VERBAL, AROUSABLE TO STIMULI. BREATHING IS EVEN AND UNLABORED. ON NASAL CANNULA COOL AEROSOL. IV ACCESS JOSE A MIDLINE AND TERESA AV SHUNT PATENT AND INTACT. SAFETY MEASURES IN PLACE WITH BED LOCKED AT LOW POSITION, SIDE RAILS UP X 2. WILL CONTINUE TO MONITOR PATIENT THROUGHOUT SHIFT.
[2020-12-15] MEDS: BLOOD SUGAR DIAGNOSTIC 1 EACH STRIP IN SCH ×4 (07:42→21:52)
[2020-12-15 08:00] VITALS: BP 98/50
[2020-12-15] MEDS: AMLODIPINE BESYLATE 10 MG TABLET GT SCH (09:00)
[2020-12-15] MEDS: DULOXETINE HCL 30 MG CAPSULE.DR GT SCH (09:05)
[2020-12-15] MEDS: LEVETIRACETAM SOL (5 ML) 100 MG/ML UDC GT SCH ×2 (09:05→20:34)
[2020-12-15] MEDS: PANTOPRAZOLE 40 MG/PACK PACK NG SCH ×2 (09:05→20:34)
[2020-12-15] MEDS: LACOSAMIDE ORAL SOLN 50 MG/5 ML UDC GT SCH ×2 (09:05→20:34)
[2020-12-15] MEDS: SEVELAMER CARBONATE 800 MG POWD.PACK GT SCH ×3 (09:06→16:33)
[2020-12-15] MEDS: ABACAVIR SULFATE 300 MG TABLET GT SCH (09:08)
[2020-12-15] MEDS: LAMIVUDINE/ZIDOVUDINE 150-300 1 TAB TABLET PO SCH ×2 (09:08→20:34)
[2020-12-15] MEDS: EFAVIRENZ 600 MG TABLET PO SCH (09:09)
[2020-12-15] MEDS: LEVOTHYROXINE SODIUM 175 MCG TABLET GT SCH (09:10)
[2020-12-15] MEDS: PROSOURCE / PROSTAT (PYXIS) 30 ML UDC GT SCH ×3 (09:10→16:33)
[2020-12-15] MEDS: FIXODENT 1 EA TUBE MM SCH ×2 (09:31→21:00)
[2020-12-15] MEDS: THERAHONEY GEL 1.5 OZ TUBE TP SCH (09:31)
[2020-12-15] MEDS: DAKINS QUARTER STRENGTH (0.125%) 480 ML BOTTLE TOP SCH (09:31)
[2020-12-15] MEDS: MIDODRINE HCL (5MG) 5 MG TABLET PO SCH ×3 (09:34→16:32)
--- NOTE | 2020-12-15 09:51 | NUR ---
RN NIKOS RECEIVED A CALL FROM [facility]. PT IS POSITIVE FOR VRE IN THE BLOOD. JOSE HERRERA IS MADE AWARE. PLACED PT IN CONTACT PRECAUTION.
[2020-12-15 12:00] VITALS: BP 114/63
[2020-12-15 12:04] LABS: ALBUMIN 1.8 g/dL (3.4-5.0); BILIRUBIN,TOTAL 0.5 mg/dL (0.2-1.0); CALCIUM, SERUM 9.3 mg/dL (8.5-10.1); CREATININE 3.1 mg/dL (0.6-1.3); POTASSIUM 3.2 mmol/L (3.5-5.1); TOTAL PROTEIN, SERUM 5.7 g/dL (6.4-8.2)
[2020-12-15] MEDS: NEPRO 1,000 ML BOTTLE GT PRN (12:50)
--- NOTE | 2020-12-15 15:55 | NUR ---
RT Pt suctioned through trach moderate thick white/yellow secretions. Trach care done, no bleeding or redness at trach site noted. Addendum: 12/15/20 at 1602 by NIKHIL SARKAR RT Amended: Links added.
[2020-12-15 16:00] VITALS: BP 123/72
[2020-12-15] MEDS: MEROPENEM 1 G in IV NS 0.9% 100 ML IV SCH (17:28)
--- NOTE | 2020-12-15 19:20 | NUR ---
RN OPENING NOTE PT IN BED, NONVERBAL, OPENS EYES TO STIMULI, FLAT AFFECT. NO S/S OF PAIN NOTED. RESPIRATIONS EVEN/UNLABORED. ON COOL AEROSOL VIA T-PIECE, WITH O2 @5LPM. IV SITE: JOSE A MIDLINE INTACT/PATENT/FLUSHES WELL. WITH TERESA AV SHUNT WITH DRESSING C/D/I. S/P HD TODAY. WITH GT IN PLACE, INTACT/PATENT, 0 RESIDUAL NOTED. TELE MONITOR READING SR, HR 97. PT IN NO ACUTE DISTRESS. WILL CONT TO MONITOR. SAFETY MEASURES IN PLACE, BED IN LOWEST LOCKED POSITION, S/R UPX2, CALL LIGHT WITHIN REACH.
[2020-12-15 20:00] VITALS: BP_SYST 114; BP_SYST 96; BP_DIAS 64; BP_DIAS 67
[2020-12-15] MEDS: EZETIMIBE 10 MG TABLET GT SCH (22:06)
--- NOTE | 2020-12-15 23:10 | NUR ---
RN NOTE PT FOR TRANSFER TO [id number]. REPORT GIVEN TO RN, CAM.
--- NOTE | 2020-12-15 23:30 | NUR ---
GRIDDLE COOK MONITORING NOTES: RECEIVED PATIENT TRANSFER FROM [facility] ON STABLE CONDITION, PATIENT IS AWAKE NO COMPLAIN OF PAIN OR ANY FACIAL GRIMACING, ON TELE MONITORING SR -64, PATIENT ON G TUBE FEEDING OF NEPHRO 100ML 235ML/HR INFUSING WELL, WATER FLUSHING DONE 100CC EVERY 6 HOURS, PATIENT JOSE A MIDLINE WITH TERESA AV SHUNT HEMO DIALYSIS DONE TODAY WITH 2.5L OUTPUT, ON 5L VIA COOL AEROSOL AT 96 % SATURATION, NO SOB OR ANY RESP DISTRESS OBSERVED, PATIENT KEPT CLEAN AND DRYL ALL NEEDS MET WILL CONTINUE TO MONITOR.
--- NOTE | 2020-12-15 23:30 | NUR ---
RN NOTE PT TRANSFERRED TO [id number] VIA ACLS PROTOCOL. PT IN STABLE CONDITION. HANDOFF TO RNCAM, FOR CONTINUITY OF CARE.
[2020-12-16] VITALS (8 sets, daily range): BP systolic 96–123; BP diastolic 56–72
[2020-12-16] MEDS: METOPROLOL TARTRATE 25 MG TABLET GT SCH ×4 (00:27→17:06)
[2020-12-16] MEDS: GABAPENTIN 100 MG CAPSULE GT SCH ×3 (05:20→22:28)
[2020-12-16 06:43] LABS: BASOPHILS # (AUTO) 0.1 K/uL (0.0-0.2); BASOPHILS % (AUTO) 0.4 % (0.0-2.0); EOSINOPHILS % (AUTO) 3.6 % (0.0-6.0); HEMATOCRIT 24 % (33-45); HEMOGLOBIN 7.9 g/dL (11.5-14.8); LYMPHOCYTES # (AUTO) 0.8 K/uL (0.8-4.8); LYMPHOCYTES % (AUTO) 4.3 % (20.0-44.0); MEAN CORPUSCULAR HGB CONC 33 g/dl (31.0-36.0); MEAN CORPUSCULAR VOLUME 92 fL (82-100); MONOCYTES # (AUTO) 1.2 K/uL (0.1-1.30); MONOCYTES % (AUTO) 6.8 % (2.0-12.0); NEUTROPHILS % (AUTO) 84.9 % (43.0-81.0); PLATELET COUNT (AUTO) 361 K/uL (150-450); RED BLOOD CELL COUNT(AUTO) 2.64 MIL/uL (4.0-5.2); WHITE BLOOD COUNT (AUTO) 17.6 K/uL (4.3-11.0)
[2020-12-16] MEDS: INSULIN REGULAR, HUMAN 100 UNIT/ML 3 ML VIAL SQ PRN ×4 (06:54→23:03)
--- NOTE | 2020-12-16 07:10 | NUR ---
TAIL WORKER CLOSING NOTES: PATIENT WAS RECEIVED TRANSFER FROM [place] ON STABLE CONDITION, PLACED IN BED COMFORTABLY, NO COMPLAIN OF PAIN AND DISCOMFORT, NO FACIAL GRIMACING WAS OBSERVED WITH JOSE A MIDLINE, AND TERESA AV SHUNT, ON DIALYSIS DONE YESTERDAY WITH 2.5L OUTPUT, PATIENT IS G TUBE FEEDING OF NEPHRO AT 35ML/HR INFUSING WELL, ON BLOOD SUGAR MONITORING, PATIENT KEPT CLEAN AND DRY, ALL NEEDS MET, ENDORSE TO INCOMING SHIFT.
[2020-12-16 07:30] LABS: ALBUMIN 1.7 g/dL (3.4-5.0); BILIRUBIN,TOTAL 0.5 mg/dL (0.2-1.0); CALCIUM, SERUM 10.1 mg/dL (8.5-10.1); CREATININE 2.4 mg/dL (0.6-1.3); POTASSIUM 3.2 mmol/L (3.5-5.1); TOTAL PROTEIN, SERUM 6.8 g/dL (6.4-8.2)
[2020-12-16] MEDS: BLOOD SUGAR DIAGNOSTIC 1 EACH STRIP IN SCH ×4 (07:31→22:00)
[2020-12-16] MEDS ORDERED: POTASSIUM CHLORIDE 20 MEQ TAB.PRT.SR PO ONE ×2 (08:30)
[2020-12-16] MEDS: LACOSAMIDE ORAL SOLN 50 MG/5 ML UDC GT SCH ×2 (09:00→22:27)
[2020-12-16] MEDS: LEVOTHYROXINE SODIUM 175 MCG TABLET GT SCH ×3 (09:00→11:27)
[2020-12-16] MEDS: SEVELAMER CARBONATE 800 MG POWD.PACK GT SCH ×3 (09:17→16:23)
[2020-12-16] MEDS: ABACAVIR SULFATE 300 MG TABLET GT SCH (09:18)
[2020-12-16] MEDS: DULOXETINE HCL 30 MG CAPSULE.DR GT SCH (09:18)
[2020-12-16] MEDS: MIDODRINE HCL (5MG) 5 MG TABLET PO SCH ×3 (09:18→16:24)
[2020-12-16] MEDS: EFAVIRENZ 600 MG TABLET PO SCH (09:18)
[2020-12-16] MEDS: LEVETIRACETAM SOL (5 ML) 100 MG/ML UDC GT SCH ×2 (09:18→22:28)
[2020-12-16] MEDS: PANTOPRAZOLE 40 MG/PACK PACK NG SCH ×2 (09:18→22:28)
[2020-12-16] MEDS: AMLODIPINE BESYLATE 10 MG TABLET GT SCH (09:19)
[2020-12-16] MEDS: LAMIVUDINE/ZIDOVUDINE 150-300 1 TAB TABLET PO SCH ×2 (09:19→22:27)
[2020-12-16] MEDS: PROSOURCE / PROSTAT (PYXIS) 30 ML UDC GT SCH ×3 (09:19→16:04)
[2020-12-16] MEDS: FIXODENT 1 EA TUBE MM SCH ×2 (09:27→22:54)
[2020-12-16] MEDS: DAKINS QUARTER STRENGTH (0.125%) 480 ML BOTTLE TOP SCH (09:27)
[2020-12-16] MEDS: THERAHONEY GEL 1.5 OZ TUBE TP SCH (09:27)
--- NOTE | 2020-12-16 09:40 | NUR ---
MS RN NOTES CALLED PHARMACY REGARDING VIMPAT AND SYNTHROID; DRUG NOT IN OMNICELL. WILL BRING UP TO UNIT TO REFILL PER PHARMACY.
[2020-12-16] MEDS: AMPICILLIN SODIUM 2 GM in IV NS 0.9% 100 ML IV SCH (16:05)
--- NOTE | 2020-12-16 19:05 | NUR ---
MS RN CLOSING NOTES PATIENT IN BED COMFORTABLE. A/O X1 , NON-VERBAL, AROUSABLE TO STIMULI. BREATHING IS EVEN AND UNLABORED. ON NASAL CANNULA COOL AEROSOL. IV ACCESS JOSE A MIDLINE AND TERESA AV SHUNT PATENT AND INTACT. SAFETY MEASURES MAINTAINED WITH BED LOCKED AT LOW POSITION, SIDE RAILS UP X 2. WILL ENDORSE CONTINUITY OF CARE TO ONCOMING SHIFT.
--- NOTE | 2020-12-16 19:30 | NUR ---
MS RN OPENING NOTES: RECEIVED PATIENT SLEEP IN BED COMFORTABLY SON WAS PRESENT DURING ROUNDS, BED IN LOW POSITION, CALL LIGHTS WITHIN REACH, NO COMPLAIN OF PAIN AND DISCOMFORT AT THIS TIME, ON COOL AEROSOL AT 5L NO SOB WAS OBSERVED DESATURATING WELL ON G TUBE FEEDING NEPHRO AT 35ML PER HOUR, WITH JOSE A MIDLINE, TERESA A/V SHUNT,PATIENT KEPT CLEAN AND DRY,ALL NEEDS MET, WILL CONTINUE TO MONITOR.
[2020-12-16] MEDS ORDERED: AMPICILLIN 1 GM in IV NS 0.9% 50 ML IV SCH (21:00)
[2020-12-16] MEDS: EZETIMIBE 10 MG TABLET GT SCH (22:54)
[2020-12-17] VITALS: BP 137/71
[2020-12-17] MEDS: METOPROLOL TARTRATE 25 MG TABLET GT SCH ×4 (00:17→17:09)
[2020-12-17 04:08] VITALS: BP 138/71
[2020-12-17] MEDS: AMPICILLIN SODIUM 2 GM in IV NS 0.9% 100 ML IV SCH ×2 (04:12→15:32)
[2020-12-17] MEDS: GABAPENTIN 100 MG CAPSULE GT SCH ×2 (05:55→12:37)
[2020-12-17 06:36] LABS: BASOPHILS # (AUTO) 0.1 K/uL (0.0-0.2); BASOPHILS % (AUTO) 0.9 % (0.0-2.0); EOSINOPHILS % (AUTO) 5.3 % (0.0-6.0); HEMATOCRIT 26 % (33-45); HEMOGLOBIN 8.4 g/dL (11.5-14.8); LYMPHOCYTES # (AUTO) 0.8 K/uL (0.8-4.8); LYMPHOCYTES % (AUTO) 5.1 % (20.0-44.0); MEAN CORPUSCULAR HGB CONC 33 g/dl (31.0-36.0); MEAN CORPUSCULAR VOLUME 93 fL (82-100); MONOCYTES # (AUTO) 0.9 K/uL (0.1-1.30); MONOCYTES % (AUTO) 5.8 % (2.0-12.0); NEUTROPHILS # (AUTO) 12.8 K/uL (1.8-8.9); NEUTROPHILS % (AUTO) 82.9 % (43.0-81.0); PLATELET COUNT (AUTO) 404 K/uL (150-450); RED BLOOD CELL COUNT(AUTO) 2.78 MIL/uL (4.0-5.2); WHITE BLOOD COUNT (AUTO) 15.4 K/uL (4.3-11.0)
[2020-12-17 06:48] LABS: ALBUMIN 1.8 g/dL (3.4-5.0); BILIRUBIN,TOTAL 0.6 mg/dL (0.2-1.0); CALCIUM, SERUM 9.9 mg/dL (8.5-10.1); CREATININE 3.1 mg/dL (0.6-1.3); POTASSIUM 3.9 mmol/L (3.5-5.1); TOTAL PROTEIN, SERUM 7.2 g/dL (6.4-8.2)
[2020-12-17] MEDS: BLOOD SUGAR DIAGNOSTIC 1 EACH STRIP IN SCH ×3 (07:32→16:41)
[2020-12-17] MEDS: INSULIN REGULAR, HUMAN 100 UNIT/ML 3 ML VIAL SQ PRN ×2 (07:32→11:18)
[2020-12-17 07:43] LABS: EOSINOPHILS % (MANUAL) 5 % (0-4); LYMPHOCYTES % (MANUAL) 5 % (16-48); MONOCYTES % (MANUAL) 8 % (0-11.0); MYELOCYTES % 1 % (0-0); NEUTROPHILS % (MANUAL) 81 (42-76)
--- NOTE | 2020-12-17 07:55 | NUR ---
RN CLOSING NOTES: PATIENT SLEEP IN BED COMFORTABLY, AROUSABLE TO STIMULI, BED IN LOW POSITION, CALL LIGHTS WITHIN REACH, NO COMPLAIN OF PAIN AND DISCOMFORT AT THIS TIME, ON COOL AEROSOL SATURATING WELL PATIENT ON DIALYSIS WITH SCHEDULE TODAY, NPO ON G TUBE FEEDING NEPHRO AT 35ML/HR INFUSING WELL. TERESA FISTULA AND JOSE A MIDLINE INFUSING WELL. PATIENT KEPT CLEAN AND DRY ALL NEEDS MET, ENDORSE TO INCOMING SHIFT.
[2020-12-17 08:00] VITALS: BP 128/65
[2020-12-17] MEDS: LAMIVUDINE/ZIDOVUDINE 150-300 1 TAB TABLET PO SCH (09:00)
[2020-12-17] MEDS: EFAVIRENZ 600 MG TABLET PO SCH (09:00)
[2020-12-17] MEDS: ABACAVIR SULFATE 300 MG TABLET GT SCH (09:00)
[2020-12-17] MEDS: LEVOTHYROXINE SODIUM 175 MCG TABLET GT SCH (09:00)
[2020-12-17] MEDS: LEVETIRACETAM SOL (5 ML) 100 MG/ML UDC GT SCH (09:00)
[2020-12-17] MEDS: MIDODRINE HCL (5MG) 5 MG TABLET PO SCH ×3 (09:01→16:39)
[2020-12-17] MEDS: PANTOPRAZOLE 40 MG/PACK PACK NG SCH (09:01)
[2020-12-17] MEDS: LACOSAMIDE ORAL SOLN 50 MG/5 ML UDC GT SCH (09:01)
[2020-12-17] MEDS: DULOXETINE HCL 30 MG CAPSULE.DR GT SCH (09:01)
[2020-12-17] MEDS: AMLODIPINE BESYLATE 10 MG TABLET GT SCH (09:01)
[2020-12-17] MEDS: SEVELAMER CARBONATE 800 MG POWD.PACK GT SCH ×3 (09:01→16:39)
[2020-12-17] MEDS: PROSOURCE / PROSTAT (PYXIS) 30 ML UDC GT SCH ×3 (09:02→16:40)
[2020-12-17] MEDS: DAKINS QUARTER STRENGTH (0.125%) 480 ML BOTTLE TOP SCH (09:03)
[2020-12-17] MEDS: THERAHONEY GEL 1.5 OZ TUBE TP SCH (09:04)
[2020-12-17] MEDS: FIXODENT 1 EA TUBE MM SCH (09:04)
[2020-12-17 17:09] VITALS: BP 128/65
--- NOTE | 2020-12-17 18:22 | NUR ---
MS DISCHARGE NOTES RECEIVED DISCHARGE ORDER. A/O X1 , NON-VERBAL, AROUSABLE TO STIMULI. BREATHING IS EVEN AND UNLABORED. ON NASAL CANNULA COOL AEROSOL 5L . IV ACCESS JOSE A MIDLINE AND TERESA AV SHUNT PATENT AND INTACT. DISCHARGE SUMMARY REVIEWED WITH [facility] AND SON, SHIVA. IV ACCESS REMOVED. PT WAS PICKED UP BY AMBULANCE. REPORT GIVEN JOSE LUCIO AT [place].
--- NOTE | 2020-12-17 18:26 | NUR ---
MS RN NOTES PHOTOS TAKEN WITHIN 24HRS. IMAGES ON SD CARD. NO INK FOR PRINTER AT THIS TIME. CHARGE NURSE, REJI MADE AWARE.
== END 2020-12-17 18:38 | DRG 853 ==
LOC: ER 13:39 → TELE1 18:22 → TELE 12-15 23:27 → MED 12-16 10:36
PROVIDERS: ADMIT Nurse Practitioner Acute Care; ATTEND Internal Medicine
PROC: 30233N1 Transfusion of Nonautologous Red Blood Cells into Peripheral Vein, Percutaneous Approach (ICD-10-PCS; 2020-12-11)
PROC: 5A1D70Z Performance of Urinary Filtration, Intermittent, Less than 6 Hours Per Day (ICD-10-PCS; 2020-12-11)
PROC: 05H633Z Insertion of Infusion Device into Left Subclavian Vein, Percutaneous Approach (ICD-10-PCS; 2020-12-12)
PROC: B547ZZA Ultrasonography of Left Subclavian Vein, Guidance (ICD-10-PCS; 2020-12-12)
PROC: 0KBP0ZZ Excision of Left Hip Muscle, Open Approach (ICD-10-PCS; principal; 2020-12-14)
PROC: 0KBN0ZZ Excision of Right Hip Muscle, Open Approach (ICD-10-PCS; 2020-12-14)
DX: A41.9 Sepsis, unspecified organism (principal); L89.154 Pressure ulcer of sacral region, stage 4; L89.324 Pressure ulcer of left buttock, stage 4; L89.314 Pressure ulcer of right buttock, stage 4; I50.33 Acute on chronic diastolic (congestive) heart failure; N18.6 End stage renal disease; I13.2 Hypertensive heart and chronic kidney disease with heart failure and with stage 5 chronic kidney disease, or end stage renal disease; Z16.21 Resistance to vancomycin; Z99.11 Dependence on respirator [ventilator] status; L97.329 Non-pressure chronic ulcer of left ankle with unspecified severity; J96.10 Chronic respiratory failure, unspecified whether with hypoxia or hypercapnia; Z99.2 Dependence on renal dialysis; Z93.0 Tracheostomy status; G40.909 Epilepsy, unspecified, not intractable, without status epilepticus; Z20.822 Contact with and (suspected) exposure to COVID-19; B95.2 Enterococcus as the cause of diseases classified elsewhere; E03.9 Hypothyroidism, unspecified; E78.5 Hyperlipidemia, unspecified; E87.6 Hypokalemia; F32.A Depression, unspecified; Z95.1 Presence of aortocoronary bypass graft; G62.9 Polyneuropathy, unspecified; D63.8 Anemia in other chronic diseases classified elsewhere; D63.1 Anemia in chronic kidney disease; L89.626 Pressure-induced deep tissue damage of left heel; L89.616 Pressure-induced deep tissue damage of right heel; R13.10 Dysphagia, unspecified
CPT/HCPCS: 31720; 36415; 36600; 71045-TC; 71250-TC; 80048-TC; 80053-TC; 80061-TC; 80076-TC; 80202-TC; 82040-TC; 82728-TC; 82803-TC; 82962-TC; 83540-TC; 83735-TC; 83880; 84100-TC; 84484-TC; 85025-TC; 86360; 86706; 86850-TC; 87040-TC; 87081-TC; 87186-TC; 87340; 87806; 90935-TC; 94640-TC; 94760-TC; 94762-TC; 94799-TC; 99082-TC; A4623; A6253; A6403; A7526; C9113; G0378; J0290; J0878; J0885; J1815; J1953; J2185; J3370; J3490; J7030; J7040; J7050; J7060; P9016; U0003